=== PATIENT | female | born 1985 | race Caucasian/White ===

== ENCOUNTER 2017-05-05 06:50 | Day surgery (SDC) | payer OTHER ==
[2017-05-05] MEDS ORDERED: Sodium Chloride 0.9% 10 ML Syringe FLUSH PRN (07:00)
[2017-05-05] MEDS ORDERED: Lactated Ringers 1,000 ML IV SCH (07:00)
[2017-05-05] MEDS ORDERED: Lidocaine 1%/Sod Bicarbonate in NS 8.4% 1 ML Syringe PRN (07:00)
[2017-05-05] MEDS ORDERED: Rocuronium 50 MG/5 ML Vial ONE (07:49)
[2017-05-05] MEDS ORDERED: HYDROmorphone 1 MG/ML Syringe ONE (07:49)
[2017-05-05] MEDS ORDERED: Propofol 200 MG/20 ML SDV ONE (07:49)
[2017-05-05] MEDS ORDERED: ceFAZolin 1 GM Vial ONE (07:49)
[2017-05-05] MEDS ORDERED: Ondansetron 4 MG/2 ML SDV ONE (07:49)
[2017-05-05] MEDS ORDERED: fentaNYL 250 MCG/5 ML SDV ONE (07:50)
[2017-05-05] MEDS ORDERED: Midazolam 1 MG/ML 2 ML SDV ONE (07:50)
[2017-05-05] MEDS ORDERED: Sodium Chloride 0.9% 50 ML SDV ONE (08:21)
[2017-05-05] MEDS ORDERED: Lidocaine 1% with EPINEPHrine 1:100,000 20 ML MDV ONE (08:21)
[2017-05-05] MEDS ORDERED: Bupivacaine 0.5% 30 ML SDV ONE (08:23)
--- NOTE | 2017-05-05 08:35 | PCM.PREANE ---
Preanesthetic Assessment - Anesthesia/Transfusion/Family Hx Anesthesia History: Prior Anesthesia Without Reaction Family History of Anesthesia Reaction: No Transfusion History: Unknown - Review of Systems General: No Symptoms Pulmonary: No Symptoms, Other (smoker 1-1.5 pack per day) Cardiovascular: No Symptoms Gastrointestinal: No symptoms Neurological: No Symptoms Other: Reports: None - Physical Assessment NPO Status Date: 05/04/17 NPO Status Time: 00:00 Pulse: 66 O2 Sat by Pulse Oximetry: 95 Respiratory Rate: 16 Blood Pressure: 121/74 Vital Signs: Last Vital Signs Temp 36.7 C 05/05/17 07:12 Pulse 66 05/05/17 07:12 Resp 16 05/05/17 07:12 BP 121/84 05/05/17 07:12 Pulse Ox 95 05/05/17 07:12 Height: 1.68 m Weight: 59.874 kg ASA Class: 2 Mental Status: Alert & Oriented x3 Airway Class: Mallampati = 2 Dentition: Reports: Normal Dentition Thyro-Mental Finger Breadths: 3 Mouth Opening Finger Breadths: 3 ROM/Head Extension: Full Lungs: Clear to auscultation, Normal respiratory effort Cardiovascular: Regular Rate, Regular Rhythm - Lab Values: Laboratory Last Values WBC 6.46 K/mm3 (3.98-10.04) 05/03/17 12:04 RBC 4.89 M/mm3 (3.98-5.22) 05/03/17 12:04 Hgb 14.5 gm/L (11.2-15.7) 05/03/17 12:04 Hct 43.4 % (34.1-44.9) 05/03/17 12:04 MCV 88.8 fl (79.4-94.8) 05/03/17 12:04 MCH 29.7 pg (25.6-32.2) 05/03/17 12:04 MCHC 33.4 g/dl (32.2-35.5) 05/03/17 12:04 RDW Std Deviation 43.9 fL (36.4-46.3) 05/03/17 12:04 Plt Count 203 K/mm3 (182-369) 05/03/17 12:04 MPV 11.4 fl (9.4-12.3) 05/03/17 12:04 Neut % (Auto) 57.2 % (34.0-71.1) 05/03/17 12:04 Lymph % (Auto) 32.0 % (19.3-51.7) 05/03/17 12:04 [place] % (Auto) 8.7 % (4.7-12.5) 05/03/17 12:04 Eos % (Auto) 1.4 (0.7-5.8) 05/03/17 12:04 Baso % (Auto) 0.5 % (0.1-1.2) 05/03/17 12:04 Neut # (Auto) 3.70 K/mm3 (1.56-6.13) 05/03/17 12:04 Lymph # (Auto) 2.07 K/mm3 (1.18-3.74) 05/03/17 12:04 [place] # (Auto) 0.56 K/mm3 (0.24-0.36) H 05/03/17 12:04 Eos # (Auto) 0.09 K/mm3 (0.04-0.36) 05/03/17 12:04 Baso # (Auto) 0.03 K/mm3 (0.01-0.08) 05/03/17 12:04 Creatinine 0.8 mg/dL (0.55-1.02) 05/03/17 12:04 Est Cr Clr Drug Dosing TNP 05/03/17 12:04 Estimated GFR (MDRD) > 60 mL/min (>60) 05/03/17 12:04 Urine Color Light yellow (Yellow) 05/03/17 12:04 Urine Appearance Clear (Clear) 05/03/17 12:04 Urine pH 6.0 (5.0-8.0) 05/03/17 12:04 Ur Specific [place] 1.010 (1.005-1.030) 05/03/17 12:04 Urine Protein Negative (Negative) 05/03/17 12:04 Urine Glucose (UA) Negative (Negative) 05/03/17 12:04 Urine Ketones Negative (Negative) 05/03/17 12:04 Urine Occult Blood Negative (Negative) 05/03/17 12:04 Urine Nitrite Negative (Negative) 05/03/17 12:04 Urine Bilirubin Negative (Negative) 05/03/17 12:04 Urine Urobilinogen 0.2 (0.2-1.0) 05/03/17 12:04 Ur Leukocyte Esterase Negative (Negative) 05/03/17 12:04 Urine HCG, Qual Negative (NEGATIVE) 05/03/17 12:04 - Allergies Allergies/Adverse Reactions: Allergies Allergy/AdvReac Type Severity Reaction Status Date / Time No Known Allergies Allergy Verified 05/05/17 07:44 - Blood Blood Available: No Product(s) Available: None - Anesthesia Plan Pre-Op Medication Ordered: None - Acknowledgements Anesthesia Type Planned: General Anesthesia Pt an Appropriate Candidate for the Planned Anesthesia: Yes Alternatives and Risks of Anesthesia Discussed w Pt/Guardian: Yes Pt/Guardian Understands and Agrees with Anesthesia Plan: Yes PreAnesthesia Questionnaire HEENT History: Reports: None Cardiovascular History: Reports: None Respiratory History: Reports: None Gastrointestinal History: Reports: None Genitourinary History: Reports: STD, Other (See Below) Other Genitourinary History: genital herpes simplex virus 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: , 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 (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) Other OB/BYN History: irregular menuses, uterine leiomyoma, ovarian cyst, aspiration of ovarian cyst Musculoskeletal History: Reports: None Neurological History: Reports: None Psychiatric History: Reports: None Endocrine/Metabolic History: Reports: None Hematologic History: Reports: None Immunologic History: Reports: None Oncologic (Cancer) History: Reports: None Dermatologic History: Reports: None - Past Surgical History Head Surgeries/Procedures: Reports: None Female Surgical History: Reports: Section, Tubal Ligation - SUBSTANCE USE Smoking Status *Q: Current Every Day Smoker Recreational Drug Use History: No - HOME MEDS Home Medications: Home Meds Acyclovir 400 mg PO BID 05/04/17 [History] - CURRENT (IN HOUSE) MEDS Current Meds: Current Medications Lactated Ringer's (Ringers, Lactated) 1,000 mls @ 125 mls/hr IV ASDIRECTED ERIKA Stop: 05/05/17 23:00 Last Admin: 05/05/17 07:25 Dose: 125 mls/hr Lidocaine/Sodium Bicarbonate (Buffered Lidocaine 1% In Ns 8.4%) 0.25 ml .XX ONETIME PRN PRN Reason: Prior to IV Start Stop: 05/05/17 18:00 Last Admin: 05/05/17 07:25 Dose: 0.25 ml Sodium Chloride (Saline Flush) 10 ml FLUSH ASDIRECTED PRN PRN Reason: Keep Vein Open Stop: 05/05/17 18:00 Discontinued Medications Cefazolin Sodium (Ancef) Confirm Administered Dose 2 gm .ROUTE .STK-MED ONE Stop: 05/05/17 07:50 Fentanyl (Sublimaze) Confirm Administered Dose 250 mcg .ROUTE .STK-MED ONE Stop: 05/05/17 07:51 Hydromorphone HCl (Dilaudid) Confirm Administered Dose 1 mg .ROUTE .STK-MED ONE Stop: 05/05/17 07:50 Midazolam HCl (Versed 1 Mg/Ml) Confirm Administered Dose 2 mg .ROUTE .STK-MED ONE Stop: 05/05/17 07:51 Ondansetron HCl (Zofran) Confirm Administered Dose 4 mg .ROUTE .STK-MED ONE Stop: 05/05/17 07:50 Propofol (Diprivan 20 Ml) Confirm Administered Dose 200 mg .ROUTE .STK-MED ONE Stop: 05/05/17 07:50 Rocuronium [place] (Zemuron) Confirm Administered Dose 50 mg .ROUTE .STK-MED ONE Stop: 05/05/17 07:50
[2017-05-05] MEDS ORDERED: fentaNYL 100 MCG/2 ML SDV IVPUSH PRN (08:45)
[2017-05-05] MEDS ORDERED: Metoclopramide 10 MG/2 ML SDV IVPUSH PRN (08:45)
[2017-05-05] MEDS ORDERED: Ondansetron 4 MG/2 ML SDV IVPUSH PRN ×2 (08:45→10:50)
[2017-05-05] MEDS ORDERED: Scopolamine 1.5 MG Transdermal Patch TRDERM PRN (08:46)
[2017-05-05] MEDS ORDERED: HYDROmorphone 0.5 MG/0.5 ML Syringe IVPUSH PRN (09:15)
[2017-05-05] MEDS ORDERED: Neostigmine Methylsulfate 1 MG/ML 5 ML Syringe ONE (10:34)
[2017-05-05] MEDS ORDERED: Lactated Ringers 1,000 ML ONE (10:35)
--- NOTE | 2017-05-05 10:46 | PCM.POSTAN ---
POST ANESTHESIA ASSESSMENT - MENTAL STATUS Mental Status: alert, oriented - VITAL SIGNS Pulse Rate: 91 SaO2: 99 Resp Rate: 16 Blood Pressure: 121/80 Temperature: 36.1 C - RESPIRATORY Respiratory Status: respiratory rate WNL, airway patent, O2 saturation stable, supplemental oxygen - CARDIOVASCULAR CV Status: pulse rate WNL, blood pressure stable - GASTROINTESTINAL GI Status: no symptoms - PAIN Pain Score: 0 - POST OP HYDRATION Hydration Status: adequate & stable
[2017-05-05] MEDS ORDERED: Acetaminophen/oxyCODONE 325-5 MG Tab PO PRN (10:50)
--- NOTE | 2017-05-05 10:59 | PCM.OPNOTE ---
- General Post-Op/Procedure Note Date of Surgery/Procedure: 05/05/17 Operative Procedure(s): Total vaginal hysterectomy with right salpingectomy Findings: Normal size uterus, left fallopian tube was essentially nonexistent possibly secondary to tubal ligation. Right fallopian tube looked normal but status post tubal ligation. Both ovaries looked functional and normal and were left in place per patient desire. Pre Op Diagnosis: Irregular uterine bleeding Post-Op Diagnosis: Same Anesthesia Technique: General ET tube Other Anesthesia Type: Lidocaine 1% with [id number] mL local Primary Surgeon: Abraham Hudson Secondary Surgeon: Mayra Girard Anesthesia Provider: Lacie Simmons Pathology: Uterus with right fallopian tube in one specimen container Fluid Replacement, Intraop: 1,500 EBL in mLs: 50 Complications: None Condition: Good Free Text/Narrative:: Surgery duration: 27 minutes. Procedure: The patient was placed in supine position on the operating table. General endotracheal anesthesia was accomplished. After positioning, and adequate prep and drape, the patient was then operated upon. Sterile speculum was placed in the vagina and cervix was visualized. Cervix was injected with [ lidocaine quarter percent with epinephrine]. [20 cc] used. A full circumference incision was made in the cervical epithelium. The bladder was pushed well back off cervix. Posterior cul-de-sac was then entered sharply without problems. Left uterosacral was crossclamped with a LigaSure vessel closure system. The left uterosacral and then the right uterosacral ligament pedicles were developed using the LigaSure system. The entry cul-de-sac was then entered without problems and the uterine vascular cardinal ligament and broad ligament then developed using LigaSure vessel closure system. The uterus was inverted at this time and upper broad ligament fallopian tube pedicles were crossclamped with Betty clamps. Specimen was totally removed. Both these pedicles were then cauterized with the LigaSure system. Left fallopian tube was not visualized. Suspicion is that it was reduced in size at times tubal ligation. Right fallopian tube was normal in appearance.. The ovary on that side looked normal. The right fallopian tube was easily accessible and was removed using LigaSure system. The patient was found to be hemostatically intact at this time, both ovaries appeared normal and were left in place. A pursestring suture was and placed in the peritoneal cavity externalized and pedicles case of bleeding. Vaginal cuff was closed with running lock suture of 0 Monocryl. Patient was returned to supine position and awakened from general endotracheal anesthesia. She tolerated the procedure was then left the operating room in satisfactory condition.
[2017-05-05 11:55] VITALS: BP 115/58
== END 2017-05-05 12:53 | disposition home or self-care (01) ==
LOC: JD.SDS 06:50
PROVIDERS: ATTEND Obstetrics & Gynecology
PROC: 0UT97ZZ Resection of Uterus, Via Natural or Artificial Opening (ICD-10-PCS; principal; 2017-05-05)
PROC: 0UTC7ZZ Resection of Cervix, Via Natural or Artificial Opening (ICD-10-PCS; 2017-05-05)
PROC: 0UT57ZZ Resection of Right Fallopian Tube, Via Natural or Artificial Opening (ICD-10-PCS; 2017-05-05)
DX: N92.6 Irregular menstruation, unspecified (principal); B00.9 Herpesviral infection, unspecified; F17.200 Nicotine dependence, unspecified, uncomplicated
CPT/HCPCS: 36415; 58262; 81003; 81025; 82565; 85025; 88307; A9270; J0690; J1170; J2250; J2405; J2710; J3010; J7120; 00944; J2704

== ENCOUNTER 2017-12-29 19:12 | Emergency (ER) | payer BC, OTHER ==
[2017-12-29 19:22] VITALS: BP 143/93
--- NOTE | 2017-12-29 20:11 | EDM.PDOC ---
ED HPI GENERAL MEDICAL PROBLEM - General Chief Complaint: Lower Extremity Injury/Pain Stated Complaint: R KNEE PAIN Time Seen by Provider: 12/29/17 19:33 Source of Information: Reports: Patient History Limitations: Reports: No Limitations - History of Present Illness INITIAL COMMENTS - FREE TEXT/NARRATIVE: This is a 32-year-old female. Yesterday while at work she began to notice some swelling in the back of her right knee and pain. Today she's been walking and shopping all day and the pain behind her right knee has gotten worse and there is more swelling and now she has some burning sensation in the anterior right thigh up into the groin. There is no swelling there is no erythema. She has no history of DVT in the past. She has no history of Jeffrey's cyst in the past. She denies any fever or chills she denies any cough or congestion she's had no recent shortness of breath. She says otherwise she feels just fine. 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: , 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 (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) Other OB/BYN History: irregular menuses, uterine leiomyoma, ovarian cyst, aspiration of ovarian cyst Musculoskeletal History: Reports: None Neurological History: Reports: None Psychiatric History: Reports: None Endocrine/Metabolic History: Reports: None Hematologic History: Reports: None Immunologic History: Reports: None Oncologic (Cancer) History: Reports: None Dermatologic History: Reports: None - Past Surgical History Head Surgeries/Procedures: Reports: None Female Surgical History: Reports: Section, Hysterectomy, Tubal Ligation Social & Family History - Family History Family Medical History: Noncontributory - Tobacco Use Smoking Status *Q: Current Every Day Smoker Years of Tobacco use: 12 Packs/Tins Daily: 1.5 - Caffeine Use Caffeine Use: Reports: None - Recreational Drug Use Recreational Drug Use: No Drug Use in Last 12 Months: No Review of Systems - Review of Systems Review Of Systems: See Below Constitutional: Denies: Chills, Fever Eyes: Reports: No Symptoms Ears: Reports: No Symptoms Nose: Reports: No Symptoms Mouth/Throat: Reports: No Symptoms Respiratory: Reports: No Symptoms Cardiovascular: Reports: No Symptoms GI/Abdominal: Reports: No Symptoms Genitourinary: Reports: No Symptoms Musculoskeletal: Reports: Other (As per history of present illness) Skin: Reports: Other (As per history of present illness) Neurological: Reports: No Symptoms Psychiatric: Reports: No Symptoms ED EXAM, GENERAL - Physical Exam Exam: See Below Exam Limited By: No Limitations General Appearance: Alert, WD/WN, No Apparent Distress Eye Exam: Bilateral Eye: Normal Inspection Ears: Normal External Exam Nose: Normal Inspection Throat/Mouth: Normal Inspection, Normal Lips, Normal Voice, No Airway Compromise Head: Normocephalic Neck: Supple Respiratory/Chest: No Respiratory Distress, Lungs Clear, Normal Breath Sounds Cardiovascular: Regular Rate, Rhythm, No Murmur GI/Abdominal: Soft Back Exam: Full Range of Motion Extremities: Other (Right lower extremity does not have any tenderness in the anterior thigh where she complains of the burning there is no cord felt. No redness there's no swelling, behind the right knee however there is swelling but no redness when compared with the posterior left knee, this is where she has most of her pain, the lower leg is not swollen and not read not tender and no cord is felt in the lower leg, the right lower extremity is without findings) Neurological: Alert, Oriented Psychiatric: Normal Affect, Normal Mood Skin Exam: Warm, Dry Course - Vital Signs Last Recorded V/S: Last Vital Signs Temp 97.8 F 12/29/17 19:18 Pulse 74 12/29/17 19:18 Resp 15 12/29/17 19:18 BP 143/93 H 12/29/17 19:18 Pulse Ox 100 12/29/17 19:18 - Orders/Labs/Meds Orders: Active Orders 24 hr Category Date Time Status VL Duplex Lwr Ext Veins Ltd Rt [US] Stat Exams 12/29/17 19:45 Ordered - Radiology Interpretation Free Text/Narrative:: Ultrasound of the right leg did not show any DVT. They did not see a Jeffrey cyst either. - Re-Assessments/Exams Free Text/Narrative Re-Assessment/Exam: 12/29/17 21:29 Spoke to the patient regarding the ultrasound results. I gave her specific instructions that if the swelling behind her knee continues to bother her and she will note that if it's a Jeffrey cyst when she is up and walking it'll get worse and worse but if she sits and Restoril lies down and oftentimes it will go away. If the thigh pain or the lower leg over the next couple of days start to swell or she sees obvious redness she needs to follow-up with her doctor for repeat ultrasound for DVT. She understands. Departure - Departure Time of Disposition: 21:30 Disposition: Home, Self-Care 01 Condition: Good Clinical Impression: Posterior right knee pain - Discharge Information Referrals: PCP,None [Primary Care Provider] - Forms: ED Department Discharge Additional Instructions: Continue with your normal activities, if the swelling in the back of your right knee continues to get worse follow-up with your family doctor for repeat ultrasound looking for a Jeffrey's cyst, if you noticed over the next day or so that the right thigh starts getting red or swollen or the lower leg starts getting red or swollen return to the ER for repeat ultrasound looking for a blood clot or see your family doctor, return to the ER as needed - My Orders Last 24 Hours: My Active Orders 12/29/17 19:45 VL Duplex Lwr Ext Veins Ltd Rt [US] Stat - Assessment/Plan Last 24 Hours: My Active Orders 12/29/17 19:45 VL Duplex Lwr Ext Veins Ltd Rt [US] Stat
--- NOTE | 2017-12-31 08:58 | US ---
Right lower extremity deep venous ultrasound: Duplex and color flow imaging was obtained of the right common femoral, proximal greater saphenous, superficial femoral, popliteal, posterior tibial and peroneal veins. Normal phasic flow, augmentation and compression are seen. No popliteal cyst is identified. Impression: 1. No evidence of deep venous thrombosis within the right lower extremity or within the left common femoral vein. Diagnostic code #1 I agree with preliminary report issued by [facility] ([facility] report finalized on 12/29/17, 10:12 PM Central Time)
== END 2017-12-29 21:40 | disposition home or self-care (01) ==
LOC: JD.ED 19:12
DX: M25.561 Pain in right knee (principal); F17.210 Nicotine dependence, cigarettes, uncomplicated
CPT/HCPCS: 93971-26-RT; 93971-RT; 99283; 99284-25